=== PATIENT | female | born 1995 | race African-American/Black ===

== ENCOUNTER 2021-02-28 05:14 | Emergency (ER) | payer SELFPAY ==
[~2021-02-28] VITALS: Ht 167.6 cm; Wt 63.0 kg
[2021-02-28] MEDS ORDERED: ACETAMINOPHEN 325MG TABLET PO ONE (05:45)
[2021-02-28] MEDS ORDERED: KETOROLAC 60MG/2ML VIAL IM ONE (06:30)
[2021-02-28] MEDS ORDERED: IBUP-2028 PO (07:40)
[2021-02-28] MEDS ORDERED: OXYC-100 PO (07:40)
[2021-02-28 08:07] VITALS: BP 150/97
== END 2021-02-28 08:01 | disposition home or self-care (01) ==
LOC: ER 05:24
DX: S20.212A Contusion of left front wall of thorax, initial encounter (principal); E11.9 Type 2 diabetes mellitus without complications; I10 Essential (primary) hypertension; V43.52XA Car driver injured in collision with other type car in traffic accident, initial encounter; W22.11XA Striking against or struck by driver side automobile airbag, initial encounter; Y93.89 Activity, other specified; Y92.488 Other paved roadways as the place of occurrence of the external cause
CPT/HCPCS: 71101; 93005; 96372; 99284; J1885